=== PATIENT | female | born 1970 | race Two or more races ===

== ENCOUNTER 2023-09-15 12:36 | Emergency (ER) | payer MEDICAID, OTHER ==
[~2023-09-15] VITALS: Ht 160 cm; Wt 71.2 kg
[2023-09-15 13:00] VITALS: TEMP 98.2
[2023-09-15 13:13] VITALS: BP 173/99; PULSE 108; RESP 18; O2SAT 98
[2023-09-15] MEDS: amLODIPine BESYLATE 5 MG TAB PO ONE (13:25)
[2023-09-15 14:21] LABS: Basophils # (auto) 0.1 10 ^3/uL (0-0.2); Eosinophils # (auto) 0.1 10 ^3/uL (0-0.8); Neutrophils # (auto) 7.6 10 ^3/uL (1.6-8.6); Nucleated Red Blood Cells % 0.1 %
[2023-09-15 14:23] LABS: Basophils % (auto) 0.6 % (0.0-2.0); Eosinophils % (auto) 0.8 % (0.0-7.0); Hematocrit 35.4 % (36.0-46.0); Lymphocytes # (auto) 2.5 10 ^3/uL (0.4-5.4); Lymphocytes % (auto) 22.7 % (10.0-50.0); Mean Corpuscular Hgb Conc. 31.1 g/dL (32.0-36.0); Mean Corpuscular Volume 64.4 fL (80.0-100.0); Monocytes # (auto) 0.7 10 ^3/uL (0-1.3); Monocytes % (auto) 6.2 % (0.0-12.0); Neutrophils % (auto) 69.7 % (37.0-80.0); Red Blood Cells 5.49 10^6/uL (4.0-5.20); White Blood Cell 10.9 10^3/uL (4.4-10.8)
[2023-09-15 14:30] LABS: Alanine Aminotransferase 11 U/L (7-40); Alkaline Phosphatase 109 U/L (46-116); Anion Gap 6 (5-15); Blood Urea Nitrogen 15 mg/dL (9-23); Calcium 9.4 mg/dL (8.5-10.1); Carbon Dioxide 28 mmol/L (20-30); Chloride 105 mmol/L (98-107); Glucose 101 mg/dL (74-106); Potassium 3.4 mmol/L (3.5-5.1); Sodium 139 mmol/L (136-145)
[2023-09-15 14:31] LABS: Albumin 3.9 g/dL (3.2-4.8); Aspartate Aminotransferase < 8 U/L (13-40); BUN/Creatinine Ratio 16.5 (10.0-20.0); Bilirubin, Total 0.3 mg/dL (0.2-1.0); Red Cell Distribution Width 22.7 % (11.8-14.3); Total Protein 7.3 g/dL (5.7-8.2)
[2023-09-15 14:34] LABS: Free T3 3.43 pg/mL (2.3-4.2); Free T4 (Free Thyroxine) 1.42 ng/dL (0.89-1.76)
[2023-09-15 14:58] LABS: Platelet Estimate Increased
[2023-09-15 14:59] LABS: Anisocytosis Slight; Hypochromia Moderate
[2023-09-15 15:01] LABS: Giant Platelets Moderate; Ovalocytes FEW
== END 2023-09-15 14:25 | disposition left against medical advice (07) ==
LOC: ER 12:36
DX: R94.6 Abnormal results of thyroid function studies (principal); Z53.21 Procedure and treatment not carried out due to patient leaving prior to being seen by health care provider
CPT/HCPCS: 36415; 80053; 84439; 84443; 84481; 85025

== ENCOUNTER 2023-10-24 23:01 | Emergency (ER) | payer MEDICAID ==
[~2023-10-24] VITALS: Ht 162.6 cm; Wt 70.3 kg
[2023-10-24 23:15] VITALS: BP 188/93; PULSE 110; RESP 18; O2SAT 97
[2023-10-25] MEDS ORDERED: CEPH500C PO (00:37)
[2023-10-25] MEDS ORDERED: FURO1TAB33 PO (00:37)
== END 2023-10-25 01:52 | disposition home or self-care (01) ==
LOC: ER 23:01
DX: L03.116 Cellulitis of left lower limb (principal); R60.9 Edema, unspecified; I10 Essential (primary) hypertension; Z79.899 Other long term (current) drug therapy
CPT/HCPCS: 93971

== ENCOUNTER 2025-01-20 15:18 | Inpatient (IN) | payer MEDICAID ==
[~2025-01-20] VITALS: Ht 167.6 cm; Wt 72.4 kg
[~2025-01-20 15:18] MED LIST: CEPH500C PO; FURO1TAB33 PO
--- NOTE | 2025-01-20 15:38 | ED.PDOC ---
HPI Comments 54-year-old female with a PMHx HTN presents to the ED with a chief complaint of chest pain onset last night. Patient states she began experiencing chest pain last night, pain described as pressure sensation, woke up this morning and noticed pain has worsened. She is also experiencing shortness of breath, noticed chest pain worsens with taking deep breaths. Denied fever, chills, cough, congestion, nausea, vomiting, diarrhea, dizziness, blurred vision, headache. No other symptoms or modifying factors present at this time. Chief Complaint: Chest Pain Time Seen by MD: 15:30 Primary Care Provider: renata Julian Notes: Medications, Allergies Allergies: Coded Allergies: NO KNOWN ALLERGIES (Unverified , 10/24/23) Home Meds Active Scripts Furosemide (Lasix) 20 Mg Tb, 1 TAB PO DAILY, #30 TAB 0 Refills Prov:CORINA ARMANDO [facility] 10/25/23 Cephalexin Monohydrate (Cephalexin) 500 Mg Cap, 1 CAP PO QID for 5 Days, #20 CAP Prov:CORINA ARMANDO [facility] 10/25/23 Information Source: Patient Mode of Arrival: Ambulatory Severity: Moderate Timing: Hours Duration: Since onset Prehospital treatment: None Location: Chest (L) Radiation: No Radiation Quality: Pressure Onset: At Rest Cardiac Risk Factors: HTN PE Risk Factors: None History of: None Modifying Factors: Nothing Associated Signs and Symptoms: SOB Past Medical History PAST MEDICAL HISTORY: Arthritis, HTN, Thyroid Surgical History: Denies all surgeries ORGAN GRINDER History: No Pertinent ORGAN GRINDER History Family History Family History: Reviewed,noncontributory to illness, No family hx of Cancer, No family hx of DM, No family hx of Heart elias, No family hx of HTN, No family hx ofKidney elias, No family hx of Liver elias, No family hx of Lung elias, No family hx of Stroke Social History Smoker: Non-Smoker Alcohol: Denies ETOH Use Drugs: Denies Drug Use Lives In: Home Constitutional: denies: chills, diaphoresis, fatigue, fever, malaise, sweats, weakness, others EENTM: denies: blurred vision, double vision, ear bleeding, ear discharge, ear drainage, ear pain, ear ringing, eye pain, eye redness, hearing loss, mouth mercedes n, mouth swelling, nasal discharge, nose bleeding, nose congestion, nose pain, photophobia, tearing, throat pain, throat swelling, voice changes, others Respiratory: reports: shortness of breath; denies: cough, hemoptysis, orthopnea, SOB at rest, SOB with excertion, stridor, wheezing, others Cardiovascular: reports: chest pain; denies: dizzy spells, diaphoresis, Dyspnea on exertion, edema, irregular heart beat, left arm pain, lightheadedness, palpitations, PND, syncope, others Gastrointestinal: denies: abdomen distended, abdominal pain, blood streaked bowels, constipated, diarrhea, dysphagia, difficulty swallowing, hematemesis, melena, nausea, poor appetite, poor fluid intake, rectal bleeding, rectal pain, vomiting, others Genitourinary: denies: abnormal vagina bleeding, burning, dyspareunia, dysuria, flank pain, frequency, hematuria, incontinence, pain, , vagina discharge, urgency, others Neurological: denies: dizziness, fainting, headache, left sided numbness, left sided weakness, numbness, paresthesia, pre-existing deficit, right sided numbness, right sided weakness, seizure, speech problems, tingling, tremors, weakness, others Musculoskeletal: denies: back pain, gout, joint pain, joint swelling, muscle pain, muscle stiffness, neck pain, others Integumetry: denies: bruises, change in color, change in hair/nails, dryness, laceration, lesions, lumps, rash, wounds, others Allergic/Immunocompromised: denies: Difficulty Healing, Frequent Infections, Hives, Itching, others Hematologic/Lymphatic: denies: anemia, blood clots, easy bleeding, easy bruising, swollen glands, others Endocrine: denies: excessive hunger, excessive sweating, excessive thirst, excessive urination, flushing, intolerance to cold, intolerance to heat, unexplained weight gain, unexplained weight loss, others Psychiatric: denies: anxiety, bipolar disorder, depression, hopeless, panic dis order, schizophrenia, sleepless, suicidal, others All Other Systems: Reviewed and Negative Physical Exam General Appearance: Moderate Distress, Normal HEENT: Normal ENT Inspection, Pharynx Normal, TMs Normal Neck: Full Range of Motion, Non-Tender, Normal, Normal Inspection Respiratory: Chest Non-Tender, Lungs Clear, No Accessory Muscle Use, No Respiratory Distress, Normal Breath Sounds Cardiovascular: No Edema, No JVD, No Murmur, No Gallop, Normal Peripheral Pulses, Regular Rate/Rhythm Breast Exam: Deferred Gastrointestinal: No Organomegaly, Non Tender, No Pulsatile Mass, Normal Bowel Sounds, Soft Genitalia: Deferred Pelvic: Deferred Rectal: Deferred Extremities: No calf tenderness, Normal capillary refill, Normal inspection, Normal range of motion, Non-tender, No pedal edema Musculoskeletal : Apperance: Normal Neurologic: Alert, labor relations teacher II-XII nml as Tested, No Motor Deficits, Normal Affect, Normal Mood, No Sensory Deficits Cerebellar Function: Normal Reflexes: Normal Skin: Dry, Normal Color, Warm Peripheral Pulses: 3+ Radial (R), 3+ Radial (L) Lymphatic: No Adenopathy EKG EKG : Pulse Rate (adult): 120 Cardiac Rhythm: ST Was a procedure done? Was a procedure done?: No CP Differential Dx Differential Diagnosis: A-fib, A-Flutter, Angina, Anxiety / Panic Attack, Atrial Dysrhythmia, Electrolyte Disorder X-Ray, Labs, Meds, VS Vital Signs Date Time Temp Pulse Resp B/P (MAP) Pulse Ox O2 Delivery O2 Flow Rate FiO2 01/20/25 15:40 120 01/20/25 15:28 120 01/20/25 15:22 99.0 123 18 179/90 94 99.0 Lab Test 01/20/25 15:56 Range/Units White Blood Count 11.1 H 4.4-10.8 10^3/uL Red Blood Count 5.26 H 4.0-5.20 10^6/uL Hemoglobin 13.5 12.2-16.2 g/dL Hematocrit 41.2 36.0-46.0 % Mean Corpuscular Volume 78.3 L 80.0-100.0 fL Mean Corpuscular Hemoglobin 25.6 L 28.0-32.0 pg Mean Corpuscular Hemoglobin Concent 32.7 32.0-36.0 g/dL Red Cell Distribution Width 15.7 H 11.8-14.3 % Platelet Count 324 140-450 10^3/uL Mean Platelet Volume 8.3 6.9-10.8 fL Neutrophils (%) (Auto) 85.6 H 37.0-80.0 % Lymphocytes (%) (Auto) 9.2 L 10.0-50.0 % Monocytes (%) (Auto) 4.5 0.0-12.0 % Eosinophils (%) (Auto) 0.3 0.0-7.0 % Basophils (%) (Auto) 0.4 0.0-2.0 % Neutrophils # (Auto) 9.5 H 1.6-8.6 10 ^3/uL Lymphocytes # (Auto) 1.0 0.4-5.4 10 ^3/uL Monocytes # (Auto) 0.5 0-1.3 10 ^3/uL Eosinophils # (Auto) 0 0-0.8 10 ^3/uL Basophils # (Auto) 0 0-0.2 10 ^3/uL Nucleated Red Blood Cells 0.0 % Sodium Level 136 136-145 mmol/L Potassium Level 4.2 3.5-5.1 mmol/L Chloride Level 102 98-107 mmol/L Carbon Dioxide Level 25 20-31 mmol/L Anion Gap 9 5-15 Blood Urea Nitrogen 13 9-23 mg/dL Creatinine 0.70 0.550-1.02 mg/dL Glomerular Filtration Rate Calc 103 >90 mL/min BUN/Creatinine Ratio 18.6 10.0-20.0 Serum Glucose 106 74-106 mg/dL Calcium Level 9.0 8.7-10.4 mg/dL Troponin I High Sensitivity 17 </=34 ng/L Patient alert. Complaining of chest pain. Vitals stable. Answering questions. WBC elevated. Hemoglobin within normal limits. Possible pneumonitis. Was given Rocephin. Was given azithromycin. Explained to the patient. Continue monitoring. Time of 1ST Reevaluation: 16:00 Reevaluation 1ST: Unchanged Patient Education/Counseling: Diagnosis, Treatment, Prognosis Family Education/Counseling: No Family Present SEPSIS Sepsis Screen Physician Orders Urinalysis (01/20/25 15:35) Troponin-I Hs (01/20/25 16:35) Troponin-I Hs (01/20/25 18:35) Electrocardigram (01/20/25 19:20) Vital Signs Date Time Temp Pulse Resp B/P (MAP) Pulse Ox O2 Delivery O2 Flow Rate FiO2 01/20/25 15:40 120 01/20/25 15:28 120 01/20/25 15:22 99.0 123 18 179/90 94 99.0 Laboratory Tests Test 01/20/25 15:56 White Blood Count 11.1 10^3/uL (4.4-10.8) H Departure 1 Departure Time of Disposition: 17:09 Impression: Primary Impression: Chest pain of unknown etiology Additional Impression: Pneumonitis Disposition: ADMITTED INPATIENT Admit to: Med Surg Condition: Guarded Critical Care Note Critical Care Time?: No Stability Stability form required: No Heart Score Heart Score: Heart Score Response (Comments) Value History Slightly Suspicious 0 EKG Normal 0 Age 45-64 1 Risk Factors >3 or Hx ASHD 2 Troponin Normal limit 0 Total 3 I personally scribed for BIANCA LESLIE MD ([email or web address]) on 01/20/25 at 15:38. Electronically submitted by Enma Teixeira ([email or web address]). I personally scribed for BIANCA LESLIE MD ([email or web address]) on 01/20/25 at 15:40. Electronically submitted by Enma Teixeira ([email or web address]). BIANCA LESLIE MD Jan 20, 2025 15:38
[2025-01-20 16:10] LABS: Hematocrit 41.2 % (36.0-46.0); Hemoglobin 13.5 g/dL (12.2-16.2); Mean Corpuscular Hemoglobin 25.6 pg (28.0-32.0); Mean Corpuscular Volume 78.3 fL (80.0-100.0); Nucleated Red Blood Cells % 0.0 %
--- NOTE | 2025-01-20 16:22 | ECG ---
[facility] Test Date: 2025-01-20 Test Time: 15:28:22 Pat Name: SEPIDEH ALLEN Department: [facility] ED Patient ID: [id number] Room: 0245T Gender: F Gamma Facilities Operator: WENCESLAO : 1970 Requested By: BIANCA LESLIE Order Number: [id number] Reading MD: Gil Fraga Measurements Intervals [place] Rate: 120 P: 14 AL: 127 QRS: 40 QRSD: 93 T: 34 QT: 300 QTc: 424 Interpretive Statements Sinus tachycardia Probable left atrial enlargement ST elev, probable normal early repol pattern Baseline wander in lead(s) II,III,aVF Electronically Signed On 01-22-2025 9:55:16 PDT by Gil Fraga Please click the below link to view image of tracing.
[2025-01-20 16:23] LABS: Anion Gap 9 (5-15); Carbon Dioxide 25 mmol/L (20-31); Chloride 102 mmol/L (98-107); Potassium 4.2 mmol/L (3.5-5.1); Sodium 136 mmol/L (136-145)
[2025-01-20 16:24] LABS: Calcium 9.0 mg/dL (8.7-10.4)
[2025-01-20 16:29] LABS: BUN/Creatinine Ratio 18.6 (10.0-20.0); Blood Urea Nitrogen 13 mg/dL (9-23); Glucose 106 mg/dL (74-106)
--- NOTE | 2025-01-20 16:38 | ECG ---
[facility] Test Date: 2025-01-20 Test Time: 16:35:25 Pat Name: SEPIDEH ALLEN Department: Room: 0245T Gender: F Beading Sawyer: RAMESH : 1970 Requested By: BIANCA LESLIE Order Number: [id number] Reading MD: Gil Fraga Measurements Intervals [place] Rate: 114 P: 10 MD: 125 QRS: 37 QRSD: 93 T: 31 QT: 315 QTc: 434 Interpretive Statements Sinus tachycardia ST elev, probable normal early repol pattern Electronically Signed On 01-22-2025 9:55:43 PDT by Gil Fraga Please click the below link to view image of tracing.
[2025-01-20] MEDS ORDERED: AZITHROMYCIN 500MG/ 250ML 250 ML IV ONE (17:15)
--- NOTE | 2025-01-20 17:43 | DVH ---
CHEST RADIOGRAPH Indication: sob Technique: Single frontal view of the chest was obtained Comparison: None FINDINGS: Lines and Tubes: None Lungs: No focal consolidation. Pleura: No effusion. No pneumothorax. Cardiomediastinal contours: Unremarkable Bones: No acute osseous abnormality. IMPRESSION: 1. No acute cardiopulmonary disease.
--- NOTE | 2025-01-20 18:10 | ECG ---
[facility] Test Date: 2025-01-20 Test Time: 18:08:49 Pat Name: SEPIDEH ALLEN Department: Room: 0245T Gender: F Golf Cart Repairer: RAMESH : 1970 Requested By: BIANCA LESLIE Order Number: [id number] Reading MD: Gil rFaga Measurements Intervals [place] Rate: 108 P: 11 FL: 122 QRS: 58 QRSD: 94 T: 41 QT: 326 QTc: 437 Interpretive Statements Sinus tachycardia ST elev, probable normal early repol pattern Electronically Signed On 01-22-2025 9:56:11 PDT by Gil Fraga Please click the below link to view image of tracing.
[2025-01-21] MEDS ORDERED: MORPHINE SULFATE INJ 2 MG/ml SYRG IV PRN ×2 (02:45)
[2025-01-21] MEDS ORDERED: ONDANSETRON HCL 4 MG/2 ML VIAL IV PRN (02:45)
[2025-01-21] MEDS ORDERED: DOCUSATE SOD 100 MG CAP PO PRN (02:45)
[2025-01-21 04:11] LABS: Urine Protein, UAD Negative (Negative)
[2025-01-21] MEDS: NITROGLYCERIN 0.4 MG SL TAB SL PRN (04:35)
[2025-01-21] MEDS: LABETALOL HCL 20 MG/4 ML VL IV ONE (04:50)
[2025-01-21] MEDS: SODIUM CHLORIDE 0.9% 500 ML IV ONE (04:56)
[2025-01-21 05:36] LABS: COVID19 ANTIGEN SOFIA FIA NEGATIVE (NEGATIVE)
--- NOTE | 2025-01-21 05:41 | DVHHPRES ---
History of Present Illness Resident Creating Document: GUERDA NOGUERA RESIDENT Reason for Visit: acute pleuritic chest pain associated with tachycardia and leukocytosi History of Present Illness This patient is a 54-year-old female with a history of hypertension, hypothyroidism/thyroid disease, and arthritis who presented with burning, pressure-like chest pain. * Onset/Setting: Began last night while cleaning; worsened this morning. * Character: Burning, pleuritic (worse with inspiration). Initially described as pressure. * Radiation: None to arms, jaw, back, or shoulders. * Associated symptoms: Shortness of breath. Denies diaphoresis, syncope, nausea, vomiting, palpitations, cough, or hemoptysis. * Duration: Persistent since onset. * Risk Factors: Hypertension, smoking (45 cigarettes/day), age, female sex. Denies alcohol or illicit drug use. No recent surgery, immobilization, trauma, HRT, or OCP use. No history of DVT/PE or malignancy. * ED Findings: * Vitals: HR 165426 bpm, BP 179/90 mmHg, RR 18, SpO? 94% RA, afebrile. * Labs: WBC 11.1 (neutrophils 85.6%, left shift), Hgb 13.5, CMP unremarkable, Cr 0.7 (GFR 103). Troponins 17 ? 17 ? 14 (borderline, trending down). * Imaging: CXR normal. EKG: sinus tachycardia, possible ST elevation with early repolarization pattern, LAE. * Treatment: Azithromycin administered. * New Workup Initiated: D-dimer, bilateral lower extremity venous Dopplers, echocardiogram, serial troponins/EKGs. Low-cardiac diet started. Summary for Admission:?Given pleuritic chest pain, tachycardia, leukocytosis, borderline troponins, smoking history, and uncontrolled hypertension, patient requires admission to telemetry for cardiac monitoring, ACS/PE rule-out protocol, infection monitoring, and risk-stratified therapy. Past Medical History * Hypertension * Hypothyroidism / thyroid disease * Arthritis * Prior cellulitis * History of pitting edema Has a history of autoimmune disease but could not recall as she is taking methotrexate and hydroxychloroquine and outpatient basis Past Surgical History * None reported Family History * No premature CAD, clotting disorders, or malignancy reported Past Social History * obacco: Smokes 45 cigarettes/day * Alcohol: Denies * Drugs: Denies * Living: Home Review of Systems Review of Systems * General: No fever, chills, weight loss. * Cardiac: Chest pain as above; no palpitations, syncope, or orthopnea. * Respiratory: Mild dyspnea; no cough, sputum, hemoptysis. * GI: No abdominal pain, nausea, vomiting, melena. * : No dysuria, hematuria. * MSK: Arthritis, no acute joint swelling. * Neuro: AO 3, no deficits. * Skin: No rash. * Endocrine: Hypothyroidism on treatment, otherwise stable. Allergies: Coded Allergies: NO KNOWN ALLERGIES (Unverified , 10/24/23) Medications Current Medications Medications Dose Ordered Sig/Pepito Route Start Time Stop Time Status Last Admin Dose Admin Ondansetron HCl 4 mg Q4HP PRN IV 01/21/25 02:45 Docusate Sodium 100 mg BIDPRN PRN PO 01/21/25 02:45 Enoxaparin Sodium 40 mg DAILY SC 01/21/25 10:00 Multivitamins 1 tab DAILY PO 01/21/25 10:00 Acetaminophen 650 mg Q6HP PRN PO 01/21/25 02:45 Morphine Sulfate 2 mg Q4HPRN PRN IV 01/21/25 02:45 Nitroglycerin 0.4 mg Q5MINP PRN SL 01/21/25 02:45 01/21/25 04:35 0.4 MG Morphine Sulfate 2 mg Q30M PRN IV 01/21/25 02:45 Exam Vital Signs Vital Signs Date Time Temp Pulse Resp B/P (MAP) Pulse Ox O2 Delivery O2 Flow Rate FiO2 01/21/25 04:35 142/88 01/21/25 04:27 98.8 96 16 95 98.8 Exam * General: Alert, mild discomfort from chest pain. * Vitals: HR 112, BP 179/90, RR 18, SpO? 94% RA, afebrile. * Cardiac: Tachycardic, regular, no murmurs or rubs. No JVD. * Lungs: Clear bilaterally, mild pleuritic pain on inspiration. * Abdomen: Soft, non-tender, no organomegaly. * Extremities: No edema, no calf tenderness or swelling. * Neuro: Normal. * Skin: Warm, intact. Labs/Xrays Labs Test 01/21/25 04:30 01/21/25 03:22 01/21/25 02:29 01/20/25 19:06 Range/Units SARS-CoV-2 Antigen (Rapid) Negative NEGATIVE Urine Color Yellow Yellow Urine Clarity Clear Clear Urine pH 6.0 5.0-9.0 Urine Specific [place] 1.010 1.001-1.035 Urine Protein Negative Negative Urine Ketones Negative Negative Urine Blood Negative Negative /uL Urine Nitrite Negative Negative Urine Bilirubin Negative Negative Urine Urobilinogen 2 H Negative mg/dL Urine Leukocyte Esterase Negative Negative /uL Urine RBC None seen 0 - 4 /hpf Urine Microscopic WBC 1 0-5 /HPF Urine Squamous Epithelial Cells Few <5 /hpf Urine Bacteria None seen None Seen /hpf Urine Glucose Normal Normal mg/dL D-Dimer, Quantitative 0.80 H 0.0-0.49 mg/L FEU Troponin I High Sensitivity 14 </=34 ng/L Test 01/20/25 15:56 Range/Units White Blood Count 11.1 H 4.4-10.8 10^3/uL Red Blood Count 5.26 H 4.0-5.20 10^6/uL Hemoglobin 13.5 12.2-16.2 g/dL Hematocrit 41.2 36.0-46.0 % Mean Corpuscular Volume 78.3 L 80.0-100.0 fL Mean Corpuscular Hemoglobin 25.6 L 28.0-32.0 pg Mean Corpuscular Hemoglobin Concent 32.7 32.0-36.0 g/dL Red Cell Distribution Width 15.7 H 11.8-14.3 % Platelet Count 324 140-450 10^3/uL Mean Platelet Volume 8.3 6.9-10.8 fL Neutrophils (%) (Auto) 85.6 H 37.0-80.0 % Lymphocytes (%) (Auto) 9.2 L 10.0-50.0 % Monocytes (%) (Auto) 4.5 0.0-12.0 % Eosinophils (%) (Auto) 0.3 0.0-7.0 % Basophils (%) (Auto) 0.4 0.0-2.0 % Neutrophils # (Auto) 9.5 H 1.6-8.6 10 ^3/uL Lymphocytes # (Auto) 1.0 0.4-5.4 10 ^3/uL Monocytes # (Auto) 0.5 0-1.3 10 ^3/uL Eosinophils # (Auto) 0 0-0.8 10 ^3/uL Basophils # (Auto) 0 0-0.2 10 ^3/uL Nucleated Red Blood Cells 0.0 % Sodium Level 136 136-145 mmol/L Potassium Level 4.2 3.5-5.1 mmol/L Chloride Level 102 98-107 mmol/L Carbon Dioxide Level 25 20-31 mmol/L Anion Gap 9 5-15 Blood Urea Nitrogen 13 9-23 mg/dL Creatinine 0.70 0.550-1.02 mg/dL Glomerular Filtration Rate Calc 103 >90 mL/min BUN/Creatinine Ratio 18.6 10.0-20.0 Serum Glucose 106 74-106 mg/dL Calcium Level 9.0 8.7-10.4 mg/dL SEPSIS Sepsis Screen Date sepsis recognized/suspect: Jan 21, 2025 Time Sepsis recognized/suspect: 499 Recent Procedure: No On Antibiotic Therapy: No Respiratory Rate >20: No Heart Rate >90: No Temp<36 C (96.8 F) or >38.3 C: No SBP <90 or MAP <65 mmHG: No New Acute Mental Status Change: No Is the patient on CPAP, BIPAP,: No Physician Orders Admit (01/21/25 02:33) Code Status (01/21/25 02:33) Oxygen Per Hour (01/21/25 02:33) Ondansetron Hcl (Zofran) (01/21/25 02:45) Docusate Sodium Capsule (Colace Capsule) (01/21/25 02:45) Enoxaparin Sodium (Lovenox) (01/21/25 10:00) Multiple Vitamin Tablet (Mvi Tab) (01/21/25 10:00) Complete Blood Count (01/22/25 04:00) Comprehensive Metabolic Panel (01/22/25 04:00) Cardiac Diet-2gna,Lofat,Lochol (01/21/25 Breakfast) Echo 2d Mode Cardiac Dop (01/21/25 02:33) Condition: Unstable (01/21/25 02:33) Acetaminophen Tablet (Tylenol Tablet) (01/21/25 02:45) Morphine Sulfate Injection (01/21/25 02:45) Nitroglycerin Sublingual (Ntrostat Subli (01/21/25 02:45) Morphine Sulfate Injection (01/21/25 02:45) Oxygen By Nasal Cannula (01/21/25 02:33) Stat Ekg For Chest Pain (01/21/25 02:33) Notify Of Changes From Base (01/21/25 02:33) Fish House Worker For 24 Hours (01/21/25 02:33) Emergency Dysrhythmia Protocol (01/21/25 02:33) Rhythm Strips Once Every Shift (01/21/25 02:33) Bilat Lower Dvt (01/21/25 02:39) Hemoglobin A1c (01/21/25 05:39) Vital Signs Date Time Temp Pulse Resp B/P (MAP) Pulse Ox O2 Delivery O2 Flow Rate FiO2 01/21/25 04:35 142/88 01/21/25 04:27 98.8 96 16 142/88 (106) 95 98.8 Medications Medications Dose Ordered Sig/Pepito Route Start Time Stop Time Status Last Admin Dose Admin Nitroglycerin 0.4 mg Q5MINP PRN SL 01/21/25 02:45 01/21/25 04:35 0.4 MG Assessment/Plan Assessment/Plan * Acute Coronary Syndrome (ACS / NSTEMI vs unstable angina) vs PE vs pericarditis vs Early pneumonia/pleuritis * CC: Chest pain, leukocytosis * SKILLED NURSING: Tachycardia with borderline troponins (possible demand ischemia) Secondary Problems: 1. Hypertension uncontrolled, BP 179/90 2. Leukocytosis with neutrophilia (WBC 11.1, 85.6% neutrophils, left shift) possible infection vs inflammatory response 3. Tobacco use disorder active smoker 4. Hypothyroidism on levothyroxine 5. Arthritis chronic 6. History of pneumonia, cellulitis, edema increases infection/cardiac risk Treatment Plan Diagnostics * Serial troponins & EKGs (q6h 3) * Echocardiogram (LV function, pericardial effusion, wall motion) * CTA chest with contrast if D-dimer positive or LE Dopplers abnormal * Bilateral lower extremity Dopplers (ordered) * D-dimer (ordered) * CBC, CMP daily * ESR/CRP for pericarditis/inflammatory process * BNP, lipid panel, HbA1c for risk stratification Therapeutics / Orders * Admit to telemetry unit for continuous cardiac monitoring * Oxygen PRN to maintain SpO? >94% * Analgesia: Acetaminophen for pain; avoid NSAIDs until ACS ruled out * ACS protocol: * Aspirin 325 mg PO load ? 81 mg daily * Atorvastatin 80 mg PO nightly * Metoprolol IV/PO if HR persistently >110 (avoid if hypotensive) * Nitroglycerin PRN chest pain if SBP >100 * Antibiotics: Continue azithromycin and ceftriaxone for early pneumonia/pleuritis discontinue if cultures are negative Consider resuming home medications including the anti-inflammatory drug and consider steroid as per discretion of the primary care team due to her autoimmune condition * Hypertension management: Resume home regimen * Endocrine: Continue levothyroxine * Smoking cessation: Nicotine patch + counseling Prophylaxis * DVT prophylaxis: lovenox sc * GI prophylaxis: Famotidine or PPI if stress-risk or on anticoagulation * Diet: Low-cardiac diet (ordered) * Fall precautions Disposition * Admit to Telemetry Case discussed in detail with the attending physician, including the clinical presentation, diagnostic workup, and comprehensive management plan. The patient was present for the discussion and demonstrated understanding of her condition and the proposed plan. Patient verbally consented to hospital admission and agreed to the outlined evaluation and treatment strategies, including imaging, labs, medication initiation, specialist consultations, and supportive care. Plan discussed with: Patient My Orders Orders - GUERDA NOGUERA RESIDENT Procedure Category Date Status Time Admit ADMIT 01/21/25 Transmitted 02:33 Code Status CODE 01/21/25 Transmitted 02:33 Oxygen Per Hour RT 01/21/25 Transmitted 02:33 Ondansetron Hcl PHA 01/21/25 In Process (Zofran) 02:45 Docusate Sodium PHA 01/21/25 In Process Capsule (Colace 02:45 Enoxaparin Sodium PHA 01/21/25 In Process (Lovenox) 10:00 Multiple Vitamin PHA 01/21/25 In Process Tablet (Mvi Tab) 10:00 Complete Blood Count LAB 01/22/25 Verified 04:00 Comprehensive LAB 01/22/25 Verified Metabolic Panel 04:00 Cardiac DIET 01/21/25 Transmitted Diet-2gna,Lofat,Lochol Breakfast Echo 2d Mode Cardiac US 01/21/25 Logged DOP 02:33 Condition: Unstable ELADIA 01/21/25 In Process 02:33 Acetaminophen Tablet PHA 01/21/25 In Process (Tylenol Tablet) 02:45 Morphine Sulfate PHA 01/21/25 In Process Injection 02:45 Nitroglycerin PHA 01/21/25 In Process Sublingual (Ntrostat 02:45 Morphine Sulfate PHA 01/21/25 In Process Injection 02:45 Oxygen By Nasal RT 01/21/25 Transmitted Cannula 02:33 Stat Ekg For Chest [facility] 01/21/25 In Process Pain 02:33 Notify Md Of Changes [facility] 01/21/25 In Process From Base 02:33 Fish House Worker For [facility] 01/21/25 In Process 24 Hours 02:33 Emergency Dysrhythmia [facility] 01/21/25 In Process Protocol 02:33 Rhythm Strips Once [facility] 01/21/25 In Process Every Shift 02:33 Bilat Lower Dvt US 01/21/25 Logged 02:39 Hemoglobin A1c LAB 01/21/25 Verified 05:39 Date of Service: Jan 21, 2025 Billing Provider: EMERSON CAMEJO MD Common Visit Codes: [id number] INP/OBS CARE (HIGH) GUERDA NOGUERA RESIDENT Jan 21, 2025 05:41
--- NOTE | 2025-01-21 07:28 | DVH ---
Bilateral lower extremity venous duplex Clinical History: EVALUATE FOR DVT Comparison: US LT LOWER DVT on DOS: 10/25/23 Findings: Duplex Doppler evaluation of the deep venous systems of both lower extremities from the common femora l veins to the popliteal veins including color Doppler and spectral/pulsed waveform analysis was perf ormed. RIGHT SIDE: The common femoral vein demonstrates appropriate compressibility and waveform variability. There is compressibility/patency of the great saphenous vein at the proximal thigh. The femoral vein demonstrates appropriate compressibility and waveform variability. The deep femoral vein demonstrates appropriate compressibility and waveform variability. The popliteal vein demonstrates appropriate compressibility and waveform variability. There is normal compressibility at the tibioperoneal trunk. LEFT SIDE: The common femoral vein demonstrates appropriate compressibility and waveform variability. There is compressibility/patency of the great saphenous vein at the proximal thigh. The femoral vein demonstrates appropriate compressibility and waveform variability. The deep femoral vein demonstrates appropriate compressibility and waveform variability. The popliteal vein demonstrates appropriate compressibility and waveform variability. There is normal compressibility at the tibioperoneal trunk. There is a lymph node measuring 3.0 x 0.9 x 2.5 cm. Impression: 1. No right or left femoropopliteal venous thrombosis. Workstation: [employer]
[2025-01-21 09:46] VITALS: BP 109/71; PULSE 83; RESP 18; TEMP 97.7; O2SAT 93
[2025-01-21] MEDS: ENOXAPARIN SOD 40 MG/0.4 ML SYRINGE SC SCH (09:54)
[2025-01-21] MEDS: MULTIPLE VITAMIN TAB PO SCH (09:54)
[2025-01-21 12:54] VITALS: BP 126/75; PULSE 89; RESP 17; TEMP 98.2; O2SAT 100
--- NOTE | 2025-01-21 15:31 | DVHPN2 ---
Reviewed: H&P Changes from previous H/P or p: No Changes General: Per HPI Objective Vitals Vital Signs Date Time Temp Pulse Resp B/P (MAP) Pulse Ox O2 Delivery O2 Flow Rate FiO2 01/21/25 12:54 98.2 89 17 126/75 (92) 100 98.2 01/21/25 09:46 Room Air* 0 21 Exam * Cardiac: Tachycardic, regular, no murmurs or rubs. No JVD. * Lungs: Clear bilaterally, mild pleuritic pain on inspiration. * Abdomen: Soft, non-tender, no organomegaly. * Extremities: No edema, no calf tenderness or swelling. * Neuro: Normal. * Skin: Warm, intact. Medications Current Medications Medications Dose Ordered Sig/Pepito Route Start Time Stop Time Status Last Admin Dose Admin Ondansetron HCl 4 mg Q4HP PRN IV 01/21/25 02:45 Docusate Sodium 100 mg BIDPRN PRN PO 01/21/25 02:45 Enoxaparin Sodium 40 mg DAILY SC 01/21/25 10:00 01/21/25 09:54 40 MG Multivitamins 1 tab DAILY PO 01/21/25 10:00 01/21/25 09:54 1 TAB Acetaminophen 650 mg Q6HP PRN PO 01/21/25 02:45 Morphine Sulfate 2 mg Q4HPRN PRN IV 01/21/25 02:45 Nitroglycerin 0.4 mg Q5MINP PRN SL 01/21/25 02:45 01/21/25 04:35 0.4 MG Morphine Sulfate 2 mg Q30M PRN IV 01/21/25 02:45 Azithromycin 250 ml @ 125 mls/hr DAILY IV 01/22/25 10:00 Ceftriaxone Sodium 50 ml @ 100 mls/hr DAILY@09 IV 01/22/25 09:00 Laboratory Results Laboratory Tests 01/20/25 15:56 Chemistry Test 01/20/25 15:56 Calcium Level 9.0 mg/dL (8.7-10.4) Coagulation Test 01/21/25 02:29 D-Dimer, Quantitative 0.80 mg/L FEU (0.0-0.49) H Cardiac Markers Test 01/21/25 07:03 B-Type Natriuretic Peptide 43.80 pg/mL (0-100) HgA1c, TSH Test 01/21/25 07:03 Hemoglobin A1c 5.5 % A1C (<5.7) Urinalysis Test 01/21/25 03:22 Urine Color Yellow (Yellow) Urine Clarity Clear (Clear) Urine pH 6.0 (5.0-9.0) Urine Specific [place] 1.010 (1.001-1.035) Urine Protein Negative (Negative) Urine Ketones Negative (Negative) Urine Blood Negative /uL (Negative) Urine Nitrite Negative (Negative) Urine Bilirubin Negative (Negative) Urine Urobilinogen 2 mg/dL (Negative) H Urine Leukocyte Esterase Negative /uL (Negative) Urine RBC None seen /hpf (0 - 4) Urine Microscopic WBC 1 /HPF (0-5) Urine Squamous Epithelial Cells Few /hpf (<5) Urine Bacteria None seen /hpf (None Seen) Urine Glucose Normal mg/dL (Normal) Labs and/or images reviewed: Labs reviewed by me, Image(s) reviewed by me Assessment/Plan Assessment/Plan This patient is a 54-year-old female with a history of hypertension, hypothyroidism/thyroid disease, and arthritis who presented with burning, pressure-like chest pain. Chest pain began last night while weaning worsening in the morning. Chest pain is burning pleuritic some pressure-like, nonradiating. Has some associated shortness of breath. Nonradiating. Persistent since onset last night. Risk factors of hypertension smoking quarter pack a day. 01/21: Chest pain is resolving,. Patient had mild while white count, neutrophilia, ESR elevated. Has normal hemoglobin macrocytosis? . BNP unremarkable troponins negative x3, UA unremarkable. Admitted for rule out ACS. Chest pain, unstable angina possible, rule out ACS Pleuritic chest pain, viral pleuritis possible Secondary Problems: 1. Hypertension uncontrolled, BP 179/90 2. Leukocytosis with neutrophilia (WBC 11.1, 85.6% neutrophils, left shift) possible infection vs inflammatory response 3. Tobacco use disorder active smoker 4. Hypothyroidism on levothyroxine 5. Arthritis chronic 6. History of pneumonia, cellulitis, edema increases infection/cardiac risk Tele Full code Plan discussed with: Patient Date of Service: Jan 21, 2025 Billing Provider: LYSSA LEWIS MD Common Visit Codes: 12469-BUDJUBORWL INP/OBS CARE(HIGH) LYSSA LEWIS MD Jan 21, 2025 15:31
[2025-01-21 16:40] VITALS: BP 109/66; PULSE 86; RESP 16; TEMP 98.6; O2SAT 98
[2025-01-21] MEDS: PANTOPRAZOLE 40 MG/10 ML VIAL INJ IV SCH (16:51)
[2025-01-21 21:00] VITALS: BP 125/70; PULSE 88; RESP 18; TEMP 98.2; O2SAT 98
[2025-01-21 21:39] VITALS: BP 126/64; PULSE 90; RESP 17; TEMP 97.4; O2SAT 100
[2025-01-21] MEDS: ACETAMINOPHEN 325 MG TAB PO PRN (22:02)
[2025-01-22 01:00] VITALS: BP 140/67; PULSE 79; RESP 16; TEMP 97.7; O2SAT 95
[2025-01-22 05:00] VITALS: BP 132/69; PULSE 76; RESP 17; TEMP 97.3; O2SAT 94
[2025-01-22 07:32] LABS: Alanine Aminotransferase 34 U/L (7-40); Albumin 3.4 g/dL (3.2-4.8); Anion Gap 9 (5-15); BUN/Creatinine Ratio 20.6 (10.0-20.0); Blood Urea Nitrogen 14 mg/dL (9-23); Calcium 8.8 mg/dL (8.7-10.4); Carbon Dioxide 27 mmol/L (20-31); Chloride 104 mmol/L (98-107); Glucose 100 mg/dL (74-106); Potassium 4.3 mmol/L (3.5-5.1); Sodium 140 mmol/L (136-145); Total Protein 6.4 g/dL (5.7-8.2)
[2025-01-22 07:33] LABS: Bilirubin, Total 0.4 mg/dL (0.2-1.0); Hematocrit 37.0 % (36.0-46.0); Hemoglobin 12.5 g/dL (12.2-16.2); Mean Corpuscular Hemoglobin 26.0 pg (28.0-32.0); Mean Corpuscular Volume 77.0 fL (80.0-100.0); Nucleated Red Blood Cells % 0.0 %
[2025-01-22 07:34] LABS: Alkaline Phosphatase 183 U/L (46-116)
--- NOTE | 2025-01-22 09:44 | DVHSR ---
APPROVED REPORT EXAM: Two-dimensional and M-mode echocardiogram with Doppler and color Doppler. Blood Pressure: 138/84 mmHg INDICATION Evaluate for structural heart disease RISK FACTORS Height: 5'6", Weight: 160 DIMENSIONS LVDd4.2 (3.8-5.7cm)LA (2D)3.8 (1.9-4.0cm)Aortic Root3.0 (2.0-3.7cm) LVDs2.6 (2.5-4.0cm)LA (MM) (1.9-4.0cm)Aortic Cusp Exc1.8 (1.5-2.0cm) EF (%) 60.0 (55-70%)Rt. Atrium3.9 (1.9-4.0cm)Asc. Aorta cm IVSd1.0 (0.7-1.1cm)RV (D) (1.8-2.4cm) PWd1.1 (0.7-1.1cm) Mitral Valve MitralMitral Stenosis E wave0.66m/sMV Mean GR.mmHg A wave0.71m/sMV Peak GR.mmHg E/A ratio0.92D MVAcm2 DECEL [id number] 1/2 [place] Aortic Valve Aortic ValveAortic Stenosis V10.98m/Ac Mean GR.4mmHg V21.41m/Ac Peak GR.8mmHg LVOT Diameter2.0 (1.8-2.4cm)Doppler AVA2.18cm2 Pulmonic Valve V20.85m/s Conclusion NORMAL LV EF AND IS 65% NORMAL RV SIZE AND FUNCTION NORMAL VALVES NO EFFUSION
--- NOTE | 2025-01-22 11:45 | DVHDS2 ---
Discharge Summary Date of Admission Jan 21, 2025 at 02:33 Date of Discharge: Jan 22, 2025 Labs/Diagnostic Data: Laboratory Results Test 01/22/25 06:30 01/21/25 10:10 01/21/25 07:03 01/21/25 04:30 White Blood Count 4.8 10^3/uL (4.4-10.8) Red Blood Count 4.80 10^6/uL (4.0-5.20) Hemoglobin 12.5 g/dL (12.2-16.2) Hematocrit 37.0 % (36.0-46.0) Mean Corpuscular Volume 77.0 fL (80.0-100.0) Mean Corpuscular Hemoglobin 26.0 pg (28.0-32.0) Mean Corpuscular Hemoglobin Concent 33.8 g/dL (32.0-36.0) Red Cell Distribution Width 16.1 % (11.8-14.3) Platelet Count 298 10^3/uL (140-450) Mean Platelet Volume 8.8 fL (6.9-10.8) Neutrophils (%) (Auto) 58.1 % (37.0-80.0) Lymphocytes (%) (Auto) 32.5 % (10.0-50.0) Monocytes (%) (Auto) 6.3 % (0.0-12.0) Eosinophils (%) (Auto) 2.4 % (0.0-7.0) Basophils (%) (Auto) 0.7 % (0.0-2.0) Neutrophils # (Auto) 2.8 10 ^3/uL (1.6-8.6) Lymphocytes # (Auto) 1.6 10 ^3/uL (0.4-5.4) Monocytes # (Auto) 0.3 10 ^3/uL (0-1.3) Eosinophils # (Auto) 0.1 10 ^3/uL (0-0.8) Basophils # (Auto) 0 10 ^3/uL (0-0.2) Nucleated Red Blood Cells 0.0 % Sodium Level 140 mmol/L (136-145) Potassium Level 4.3 mmol/L (3.5-5.1) Chloride Level 104 mmol/L (98-107) Carbon Dioxide Level 27 mmol/L (20-31) Anion Gap 9 (5-15) Blood Urea Nitrogen 14 mg/dL (9-23) Creatinine 0.68 mg/dL (0.550-1.02) Glomerular Filtration Rate Calc 103 mL/min (>90) BUN/Creatinine Ratio 20.6 (10.0-20.0) Serum Glucose 100 mg/dL (74-106) Calcium Level 8.8 mg/dL (8.7-10.4) Total Bilirubin 0.4 mg/dL (0.2-1.0) Aspartate Amino Transferase (AST) 32 U/L (13-40) Alanine Aminotransferase (ALT) 34 U/L (7-40) Alkaline Phosphatase 183 U/L (46-116) Total Protein 6.4 g/dL (5.7-8.2) Albumin 3.4 g/dL (3.2-4.8) Troponin I High Sensitivity 5 ng/L (</=34) Erythrocyte Sedimentation Rate 47 mm/hr (0-20) Hemoglobin A1c 5.5 % A1C (<5.7) C-Reactive Protein High Sensitivity 15.37 mg/dL (<1.0) B-Type Natriuretic Peptide 43.80 pg/mL (0-100) SARS-CoV-2 Antigen (Rapid) Negative (NEGATIVE) Test 01/21/25 03:22 01/21/25 02:29 Urine Color Yellow (Yellow) Urine Clarity Clear (Clear) Urine pH 6.0 (5.0-9.0) Urine Specific [place] 1.010 (1.001-1.035) Urine Protein Negative (Negative) Urine Ketones Negative (Negative) Urine Blood Negative /uL (Negative) Urine Nitrite Negative (Negative) Urine Bilirubin Negative (Negative) Urine Urobilinogen 2 mg/dL (Negative) Urine Leukocyte Esterase Negative /uL (Negative) Urine RBC None seen /hpf (0 - 4) Urine Microscopic WBC 1 /HPF (0-5) Urine Squamous Epithelial Cells Few /hpf (<5) Urine Bacteria None seen /hpf (None Seen) Urine Glucose Normal mg/dL (Normal) D-Dimer, Quantitative 0.80 mg/L FEU (0.0-0.49) Other Laboratory Tests 01/22/25 06:30 Brief Hx & Hospital Course: This patient is a 54-year-old female with a history of hypertension, hypothyroidism/thyroid disease, and arthritis who presented with burning, pressure-like chest pain. Chest pain began last night while weaning worsening in the morning. Chest pain is burning pleuritic some pressure-like, nonradiating. Has some associated shortness of breath. Nonradiating. Persistent since onset last night. Risk factors of hypertension smoking quarter pack a day. 01/21: Chest pain is resolving,. Patient had mild while white count, neutrophilia, ESR elevated. Has normal hemoglobin macrocytosis? . BNP unremarkable troponins negative x3, UA unremarkable. Admitted for rule out ACS. 01/22: Since starting PPI patient pain has been resolved, remains without any concerns on tele, troponins were negative, chest pain resolving with PPI. Ruled out ACS, likely due to reflux disease and/or costochondritis. So for discharge follow up with PCP Diagnosis: Chest pain, unstable angina rules out , possible GERD and/or possible costochondritis Ruled out ACS Pleuritic chest pain, viral pleuritis possible Hypertension uncontrolled, Leukocytosis with neutrophilia, possible infection vs inflammatory response Tobacco use disorder Hypothyroidism Arthritis, chronic Plan: Takes Protonix 40mg for 30 days cont other home meds not mention above. Condition at Discharge: Fair Final Diagnosis/Problems List Chest pain, unstable angina rules out , possible GERD and/or possible costochondritis Ruled out ACS Pleuritic chest pain, viral pleuritis possible Hypertension uncontrolled, Leukocytosis with neutrophilia, possible infection vs inflammatory response Tobacco use disorder Hypothyroidism Arthritis, chronic Discharge Disposition: Home Discharge Instruct/Medications Scheduled Cephalexin Monohydrate (Cephalexin), 1 CAP PO QID Furosemide (Lasix), 1 TAB PO DAILY Discharge Statement: "Patient was advised to return to the ER or call 911 if any headaches, dizziness, shortness of breath, chest pain, abdominal pain, bleeding, fevers, or worsening of medical condition. Patient was counseled about treatment plan, medications, possible side effects, patientverbalized understanding. All questions were answered to the best of my ability. This discharge took greater then 30 minutes in planning, reviewing documentation, counseling the patient, and discussing with other team members." ASSESSMENT ASSESSMENT Assessment Date of Service: Jan 22, 2025 Billing Provider: LYSSA LEWIS MD Common Visit Codes: 39881-LPO/OBS DISCH DAY >30min LYSSA LEWIS MD Jan 22, 2025 11:45
[2025-01-22] MEDS: AZITHROMYCIN 500MG/ 250ML 250 ML IV SCH (12:25)
[2025-01-22 12:42] VITALS: BP 121/85; PULSE 82; RESP 18; TEMP 98.1; O2SAT 94
[2025-01-22 13:38] VITALS: PULSE 101
[2025-01-22 15:33] VITALS: BP 121/85; PULSE 82; RESP 18; TEMP 98.1; O2SAT 94
--- NOTE | 2025-01-28 15:48 | ECG ---
[facility] Test Date: 2025-01-20 Test Time: 15:29:18 Pat Name: SEPIDEH ALLEN Department: [facility] ED Patient ID: [id number] Room: 0245T A Gender: F [employer] Teacher: WENCESLAO : 1970 Requested By: BIANCA LESLIE Order Number: [id number] Reading MD: Gil Fraga Measurements Intervals [place] Rate: 119 P: 11 [place]: 131 QRS: 42 QRSD: 91 T: 36 QT: 303 QTc: 427 Interpretive Statements Sinus tachycardia Probable left atrial enlargement Inferior infarct, acute (LCx) Lateral leads are also involved Baseline wander in lead(s) II,III,aVF Electronically Signed On 01-28-2025 16:07:41 PDT by Gil Fraga Please click the below link to view image of tracing.
== END 2025-01-22 16:47 | disposition home or self-care (01) | DRG 243 ==
LOC: ER 15:18 → OVERFLOW 01-21 02:33 → TELE-EAST 01-21 21:39
PROVIDERS: ADMIT Student in an Organized Health Care Education/Training Program; ATTEND Student in an Organized Health Care Education/Training Program
DX: K21.9 Gastro-esophageal reflux disease without esophagitis (principal); D72.829 Elevated white blood cell count, unspecified; M94.0 Chondrocostal junction syndrome [Tietze]; I10 Essential (primary) hypertension; E03.9 Hypothyroidism, unspecified; J98.4 Other disorders of lung; F17.210 Nicotine dependence, cigarettes, uncomplicated; Z20.822 Contact with and (suspected) exposure to COVID-19
CPT/HCPCS: 36415; 71045; 80048; 80053; 81001; 83036; 83880; 84484; 85025; 85379; 85652; 86141; 87426; 93005; 93306; 93970; G0378; J2470